=== PATIENT | male | born 1975 | race Caucasian/White ===

== ENCOUNTER → 2020-04-06 15:49 | Outpatient (CLI) | payer BC, SELFPAY ==
--- NOTE | ~2020-04-06 | XR_ITS ---
XR shoulder RT min 2V DATE: 04/06/2020 17:16 INDICATION: Bilateral shoulder pain TECHNIQUE: 3 views COMPARISON: None FINDINGS: No fracture or dislocation, periosteal reaction or bone destruction or abnormal soft tissue calcification. IMPRESSION: Negative Reviewed, dictated and finalized at location B. RVISOR QUILTING IMPRESSION: Negative
--- NOTE | ~2020-04-06 | XR_ITS ---
EXAMINATION: XR lumbar spine 6V w bending EXAM DATE: 04/06/2020 17:16 INDICATION: Lumbar radiculopathy, bilateral shoulder pain. TECHNIQUE: Lumber spine frontal, lateral, bilateral oblique projections. Coned down frontal and lat eral L5-S1 lumbar projections for interpretation. Additional lateral flexion and lateral extension p rojections obtained. There are no prior studies for comparison. FINDINGS: Abdominal wall mesh anchors. There is no spondylolysis. There is moderate disc disease at T 11-12, mild to moderate L3-4 and L4-L5 with 3 mm retrolisthesis at these 2 levels on all of the later al projections. Mild to moderate lower lumbar facet arthropathy. There are no acute fractures identif ied. Paraspinal soft tissue is unremarkable. Sacrum, sacroiliac joints, sacral arcuate lines are inta ct. IMPRESSION: Mild to moderate lumbar spondylosis. Reviewed, dictated and finalized at location A. LBENZENE CRACKING SUPERVISOR
--- NOTE | ~2020-04-06 | XR_ITS ---
XR shoulder LT min 2V DATE: 04/06/2020 17:16 INDICATION: Bilateral shoulder pain TECHNIQUE: 3 views COMPARISON: None FINDINGS: No fracture or dislocation, periosteal reaction or bone destruction or abnormal soft tissue calcification. Normal alignment at the acromioclavicular and glenohumeral joints. IMPRESSION: Negative Reviewed, dictated and finalized at location B. M SECURITY OR SURVEILLANCE MONITOR IMPRESSION: Negative
== END ==
PROVIDERS: Visit Provider Nurse Practitioner Family
DX: M47.896 Other spondylosis, lumbar region (principal); M25.511 Pain in right shoulder; M25.512 Pain in left shoulder
CPT/HCPCS: 72114; 73030

== ENCOUNTER 2021-05-28 13:59 | Emergency (ER) | payer BC, SELFPAY ==
--- NOTE | 2021-05-28 14:03 | ED.URI ---
HPI - URI/Sore Throat General Chief Complaint: Upper Respiratory Infection Stated Complaint: sorethroat,rt ear pain Time Seen by Provider: 05/28/21 14:03 Source: patient Mode of arrival: ambulatory Limitations: no limitations History of Present Illness HPI Narrative: Mr. Parrish is a 45-year-old male patient presenting to the clinic today with complaints of sore throat and right ear pain x2 days. He reports his daughter also has similar symptoms. Denies any fever but has had some chills and has been feeling fatigued as well. No known exposure to anyone with Covid or flu. 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 MD elicited complaint: sore throat Related Data Home Medications Medication Instructions Recorded Confirmed albuterol 1 mcg INHALATION DIRECTED 05/28/21 05/28/21 cetirizine [Zyrtec] 10 mg PO DAILY 05/28/21 05/28/21 glimepiride 2 mg PO BID 05/28/21 05/28/21 mometasone-formoterol [Dulera] 2 inh INHALATION BID 05/28/21 05/28/21 [id number]-[id number]-vit K 1 tablet PO DAILY 05/28/21 05/28/21 [Adults Multivitamin] Allergies Allergy/AdvReac Type Severity Reaction Status Date / Time cefadroxil Allergy Unknown Rash Verified 05/28/21 14:21 feathers Allergy Unknown Verified 05/28/21 14:21 Cat Dander Allergy Unknown Uncoded 05/28/21 14:21 Dog Dander Allergy Unknown Uncoded 05/28/21 14:21 Dust Allergy Unknown Uncoded 05/28/21 14:21 Molds and Smuts Allergy Unknown Uncoded 05/28/21 14:21 Review of Systems Review of Systems: Pertinent positives per HPI. Patient denies any fever, chills, rash, headache, visual changes, dizziness, cough, shortness of breath, chest pain, palpitations, nausea, vomiting, diarrhea, constipation, abdominal pain, or any urinary issues. PMFSH Comments At the time of my signature, I reviewed and agree with the nursing past medical, surgical, social, and family history. There is no relevant family history pertinent to the patient complaint. Exam Narrative: General: Well-developed, well nourished, in no apparent distress Head: Normocephalic, atraumatic Eyes: Pupils equally round and reactive to light bilaterally, EOM intact, sclera and conjunctive clear, no discharge, lids normal Ears: Left TMs intact and dull, right TM intact, mild bulging, no fluid noted behind the TM, Ear canals clear, no drainage, grossly hearing normal. Nose: Nares patent, clear nasal discharge, mild inflammation, no sinus tenderness. Mouth: Oral pharynx without lesions or masses, good dentition, MMM. Oropharynx red, postnasal drip Neck: Supple, trachea midline, no enlargement of anterior or posterior cervical nodes, no thyroid masses or goiter palpable. Tenderness to palpation over the right eustachian tube. Cardio: Regular rate and rhythm, s1 and s2 normal, no murmur appreciated. Resp: Clear to auscultation bilaterally, no rhonchi, rales, wheezing or rubs Course Course Emergency Course: Portions of this record may have been created with voice recognition software. Level of Care: Express Care Visit Vital Signs Vital signs: Vital signs reviewed MDM - URI/Sore Throat MDM Narrative Medical decision making narrative: The time of assessment patient is resting comfortably on the exam table. He reports sore throat and right ear pain. Oropharynx is red and erythemic. Strep screen was performed and was positive for strep today in the clinic. I suspect eustachian tube dysfunction/otitis as he does have fluid behind his right TM as well as mild bulging along with strep pharyngitis. will send a course of amoxicillin for patient supportive measures discussed with patient and he voiced understanding. Differential Diagnosis Differential diagnosis: Likely sinusitis, viral infection, influenza and pharyngitis Discharge Plan Discharge Clinical Impression: Acute streptococcal pharyngitis, Acute dysfunction of right eustachian tube Acute serous otitis media of right ear Qualifiers: Recurrence:
[2021-05-28 14:15] VITALS: BP 148/82; PULSE 97; RESP 18; TEMP 36.9; O2SAT 98
== END 2021-05-28 14:39 | disposition home or self-care (01) ==
PROVIDERS: Emergency Provider Nurse Practitioner Family
DX: J02.0 Streptococcal pharyngitis (principal); H69.91 Unspecified Eustachian tube disorder, right ear; H65.01 Acute serous otitis media, right ear; J45.909 Unspecified asthma, uncomplicated; E11.9 Type 2 diabetes mellitus without complications
CPT/HCPCS: 87880; 99213; G0463